=== PATIENT | female | born 1960 | race Caucasian/White ===

== ENCOUNTER 2018-12-26 07:30 | Day surgery (SDC) | payer BC ==
[~2018-12-26 07:30] MED LIST: DIPHENHYDRAMINE HCL 50 MG/ML VIAL ONE; EPINEPHRINE INJ 1 MG/10 ML DISP.SYRIN ONE; FLUMAZENIL INJ 0.5 MG/5 ML VIAL ONE; GLUCAGON,HUMAN RECOMB 1 MG INJ ONE; NALOXONE HCL INJ/PF 0.4 MG/1 ML SDV ONE; ONDANSETRON HCL INJ/PF 4 MG/2 ML SDV ONE
[2018-12-26] MEDS: MIDAZOLAM 2 MG/2 ML INJ ONE ×5 (08:16→08:34)
[2018-12-26] MEDS: FENTANYL CITRATE INJ/PF 100 MCG/2 ML AMPUL ONE ×2 (08:18→08:32)
--- NOTE | 2018-12-26 09:18 | Discharge Summary ---
Discharge Summary (SDC) - Discharge Final Diagnosis: Colon polyps; diverticulosis Date of Surgery: 12/26/18 Discharge Date: 12/26/18 Condition: Good Treatment or Instructions: SP[facility]OOD [facility]GICAL [place] [address] POST ENDOSCOPY DISCHARGE INSTRUCTIONS 1. Diet: Start clear liquids that a regular diet as tolerated. 2. Resume all preoperative medications. All oral anticoagulants and aspirins can be resumed 24 hours after procedure. 3. If a polypectomy was performed some bleeding per rectum may occur. This should stop within 3 days. If not, please contact the office. 4. If you had a colonoscopy you may experience some bloating and delayed return of normal bowel function for several days, your regular bowel movement pattern should resume within a week. 5. Please contact [facility] at to make an appointment with Dr. Edgar for 1 to 3 weeks following procedure. 6. If you have any questions or concerns regarding your care,treatment plan or follow up, please contact our office. 7. Per clinical guidelines we recommend you undergo a repeat colonoscopy in 1-3 years. Referrals: SOILA MOON FNP [Primary Care Provider] - Discharge Diet: As Tolerated Discharge Activity: Activity As Tolerated Home Care Assistance: None Needed Report the Following to Your Physician Immediately: Shortness of Breath, Increase in Pain, Fever over 101 Degrees
--- NOTE | 2018-12-26 09:22 | Operative Report ---
Operative Report DATE OF SURGERY: 12/26/18 PREOPERATIVE DIAGNOSIS: Screening for colorectal carcinoma POSTOPERATIVE DIAGNOSIS: Same. 1. Scattered sigmoid diverticulosis. 2. Multiple polyps of the rectosigmoid colon OPERATION: 1. Total colonoscopy to cecum with photodocumentation. 2. Rectosigmoid, and upper rectal polypectomies x6 SURGEON: MERCEDES DOVE ANESTHESIA: Moderate Sedation TISSUE REMOVED OR ALTERED: Multiple polyps as described below COMPLICATIONS: None ESTIMATED BLOOD LOSS: Scant INTRAOPERATIVE FINDINGS: See below PROCEDURE: Obtaining informed consent the patient was taken from the preoperative holding area to the main endoscopy suite where monitoring devices were attached to the patient. Plan and surgical timeout were conducted The patient was placed in the left lateral decubitus position with knees to chest. A perianal examination was performed. There was no visible or palpable anorectal pathology. Sphincter tone was felt to be normal. The flexible adult colonoscope was advanced through the anal rectal canal, all the way to the cecum. Visualization of the cecum was achieved and the ileocecal valve, the appendiceal orifice and transillumination of the anterior abdominal wall. This was an excellent study on the well-prepped bowel. The colonoscope was withdrawn slowly and methodically checked and the mucosa carefully. There was no evidence of tumor, stricture, bleeding; There were scattered diverticulosis of the sigmoid colon' From approximately at 30 cm to 20 cm, that is the rectosigmoid area, there were multiple sessile and several pedunculated polyps. Approximately 6 were removed with a hot snare device, and sent to pathology in 2 separate containers. The first container had a 1 cm polyp. The other problems were much smaller. All polypectomy sites were inspected for stabilization of the site and they were felt to be acceptable. There is no mechanical bleeding. The scope was slowly withdrawn through the anal rectal canal. Complete visualization of the rectum was achieved with photodocumentation. The scope was withdrawn to the patient's anus. The patient tolerated the procedure well and was taken to the recovery area in stable condition. Based on the findings, patient be appropriate candidate for surveillance colonoscopy in 1 to 3 years, pending final path report.
[2018-12-26 10:14] VITALS: BP 123/83
== END 2018-12-26 10:05 | disposition home or self-care (01) ==
LOC: END 07:30
PROVIDERS: ATTEND Surgery
DX: Z12.11 Encounter for screening for malignant neoplasm of colon (principal); D12.7 Benign neoplasm of rectosigmoid junction; K57.30 Diverticulosis of large intestine without perforation or abscess without bleeding; I10 Essential (primary) hypertension; F17.210 Nicotine dependence, cigarettes, uncomplicated; Z79.899 Other long term (current) drug therapy
CPT/HCPCS: 45385; 88305 ×2; J2250; J3010; J0171; J1200; J1610; J2310; J2405; J3490